=== PATIENT | female | born 1980 | race Two or more races ===

== ENCOUNTER 2021-11-07 21:54 | Emergency (ER) | payer SELFPAY ==
[~2021-11-07] VITALS: Ht 165.1 cm; Wt 145.1 kg
[2021-11-08 00:54] LABS: Urine Bacteria FEW /hpf (None Seen); Urine Blood TRACE /uL (Negative); Urine Hyaline Cast FEW /lpf (0 - 2); Urine Mucus FEW (None Seen); Urine Specific Gravity 1.027 (1.001-1.035); Urine WBC 25 /hpf (0 - 5)
[2021-11-08 03:45] VITALS: BP 124/80
[2021-11-08] MEDS ORDERED: ALBU108A5 IN (04:25)
[2021-11-08] MEDS ORDERED: CEPH500C PO (04:26)
== END 2021-11-08 05:50 | disposition home or self-care (01) ==
LOC: EDBD 21:54 → ER 21:59
DX: U07.1 COVID-19 (principal); N39.0 Urinary tract infection, site not specified; J10.1 Influenza due to other identified influenza virus with other respiratory manifestations; R07.89 Other chest pain
CPT/HCPCS: 36415; 71045; 81001; 87804; 93005